=== PATIENT | male | born 2000 | race Two or more races ===

== ENCOUNTER 2024-08-27 09:17 | Emergency (ER) | payer SELFPAY ==
[2024-08-27 09:25] VITALS: BP 127/85; PULSE 93; TEMP 37.2; O2SAT 98; BMI 29.3
--- NOTE | 2024-08-27 09:33 | XR_ITS ---
The [address] [address] Patient Name: ALONDRA SHINE MRN: [id number] date: 2000 Sex: M Assigned Patient Location: ER Current Patient Location: ER Accession/Order Number: [id number] Exam Date: 08/27/2024 09:40 Report Date: 08/27/2024 10:07 At the request of: CLAY RAINEY Procedure: XR chest 1V EXAMINATION: XR chest 1V HISTORY: Cough , congestion, sore throat COMPARISON: No relevant comparison available. FINDINGS: LUNGS: No significant pulmonary parenchymal abnormalities. VASCULATURE: No increased pulmonary vasculature. PLEURA: No pneumothorax, effusion, or pleural thickening. CARDIAC: No cardiomegaly or cardiac silhouette abnormality. MEDIASTINUM: No visible mass or adenopathy. BONES: No fracture or visible bone lesion. OTHER: Negative. XR/XR chest 1V IMPRESSION: 1. No acute cardiopulmonary process. Electronically authenticated by: ROLO PAULSON Date: 08/27/2024 10:07
--- NOTE | 2024-08-27 09:34 | ED.URI1 ---
HPI - URI/Sore Throat General Chief Complaint: Upper Respiratory Infection Stated Complaint: COUGH, CONGESTION, WEAK Time Seen by Provider: 08/27/24 09:28 Source: patient Limitations: no limitations History of Present Illness HPI Narrative: 24-year-old male presents to the emergency department for a few day history of cough. He has been coughing up green phlegm, no hemoptysis or fever. Family members are not ill. No vomiting or diarrhea. He does not smoke. Related Data Previous Rx's ?Medication ?Instructions ?Recorded benzonatate 100 mg capsule 100 mg PO TID PRN cough #20 caps 08/27/24 loratadine 5 mg-pseudoephedrine ER 1 tab PO Q12H PRN nasal congestion 08/27/24 120 mg tablet,extended #20 tabs release,12hr (Claritin-D 12 Hour) Allergies Allergy/AdvReac Type Severity Reaction Status Date / Time No Known Drug Allergies Allergy Verified 08/27/24 09:28 Review of Systems ROS Narrative A ten point review of systems is negative except as noted above. PFSH PFSH Social History Little interest or pleasure in doing things: not at all Feeling down, depressed, or hopeless: not at all Exam Narrative Exam Narrative: Nurses note and vital signs reviewed and patient is not hypoxic. General: The patient appears well and in no apparent distress. Patient is resting comfortably on cart. Skin: Warm, dry, no pallor noted. There is no rash noted. Head: Normocephalic, atraumatic Eye: Normal conjunctiva, no drainage Ears, Nose, Mouth, and Throat: oral mucosa is moist. Nares patent. Cardiovascular: Regular Rate and Rhythm Respiratory: Patient is in no distress, no accessory muscle use, lungs are clear to auscultation, no wheezing, rales or rhonchi Back: non-tender GI: Soft and nontender Musculoskeletal: The patient has no evidence of calf tenderness, no pitting edema, symmetrical pulses noted bilaterally Neurological: A&O, normal speech Psychiatric: Cooperative Constitutional Vital Signs, click to edit/add: Last Vital Signs Temp 99 F 08/27/24 09:25 Pulse 93 H 08/27/24 09:25 Resp 18 08/27/24 09:25 BP 127/85 08/27/24 09:25 Pulse Ox 98 08/27/24 09:25 O2 Del Method Room Air 08/27/24 09:25 Course Vital Signs Vital signs: Vital Signs Temperature 99 F 08/27/24 09:25 Pulse Rate 93 H 08/27/24 09:25 Respiratory Rate 18 08/27/24 09:25 Blood Pressure 127/85 08/27/24 09:25 Pulse Oximetry 98 08/27/24 09:25 Oxygen Delivery Method Room Air 08/27/24 09:25 Temperature 99 F 08/27/24 09:25 Pulse Rate 93 H 08/27/24 09:25 Respiratory Rate 18 08/27/24 09:25 Blood Pressure 127/85 08/27/24 09:25 Pulse Oximetry 98 08/27/24 09:25 Oxygen Delivery Method Room Air 08/27/24 09:25 MDM - URI/Sore Throat MDM Narrative Medical decision making narrative: COVID and influenza test as well as a chest x-ray are negative. My clinical impression is that he has a viral URI. Antibiotic not indicated. Treatment diagnosis and follow-up were discussed with the patient. Differential Diagnosis Differential diagnosis: Likely upper respiratory infection, viral infection and other (COVID, influenza) Lab Data Attestation: I reviewed the patient's lab results. Labs: Lab Results 08/27/24 Range/Units 09:33 Influenza Type A Ag Negative Influenza Type B Ag Negative SARS-CoV-2 Ag (CV2AG) Negative (NEGATIVE) Imaging Data Chest x-ray: Radiologist's impression: ITS Impressions Chest X-Ray 08/27/24 09:33 IMPRESSION: 1. No acute cardiopulmonary process. Electronically authenticated by: ROLO PAULSON Date: 08/27/2024 10:07 Discharge Plan Discharge Chief Complaint: Upper Respiratory Infection Clinical Impression: Viral URI Patient Disposition: Home, Self-Care Time of Disposition Decision: 10:24 Condition: Good Mode of Transportation: Private Vehicle Prescriptions / Home Meds: New benzonatate 100 mg capsule 100 mg PO TID PRN (Reason: cough) Qty: 20 0RF Claritin-D 12 Hour 5-120 mg tablet extended release 12 hr 1 tab PO Q12H PRN (Reason: nasal congestion) Qty: 20 0RF Print Language: [place] Instructions: Upper Respiratory Infection (ED) Referrals: Physician,Non-Staff, MD [Primary Care Provider] - 1 week
[2024-08-27 10:05] LABS: Influenza Virus A Antigen Negative; Influenza Virus B Antigen Negative; Internal Control Within Normal Limits; SARS-CoV-2 Ag NEGATIVE (NEGATIVE)
== END 2024-08-27 10:30 | disposition home or self-care (01) ==
PROVIDERS: Emergency Provider Emergency Medicine
DX: J06.9 Acute upper respiratory infection, unspecified (principal); Z20.822 Contact with and (suspected) exposure to COVID-19
CPT/HCPCS: 71045; 87804; 87811; 99284